=== PATIENT | female | born 2000 | race Two or more races ===

== ENCOUNTER 2023-05-18 06:56 | Emergency (ER) | payer OTHER ==
[~2023-05-18] VITALS: Ht 167.6 cm; Wt 56.8 kg
[2023-05-18 07:16] VITALS: BP 107/55
[2023-05-18] MEDS ORDERED: ACETAMINOPHEN 500 MG TAB PO ONE (08:00)
[2023-05-18] MEDS ORDERED: IBUP-1454 PO (08:53)
== END 2023-05-18 09:21 | disposition home or self-care (01) ==
LOC: ER 06:56
DX: S80.12XA Contusion of left lower leg, initial encounter (principal); V49.9XXA Car occupant (driver) (passenger) injured in unspecified traffic accident, initial encounter; Y93.89 Activity, other specified; Y92.411 Interstate highway as the place of occurrence of the external cause; Y99.8 Other external cause status
CPT/HCPCS: 73590; 93971